=== PATIENT | female | born 1965 | race Caucasian/White ===

== ENCOUNTER 2019-01-24 16:34 | Outpatient (CLI) | payer BC ==
--- NOTE | 2019-01-24 16:53 | RAD ---
EXAM: XR Hand Lt 3 View STANDARD PROVIDED CLINICAL HISTORY: Pain FINDINGS: There is no evidence for fracture or other acute osseous abnormality. Alignment appears anatomic. Sneha nt spaces appear preserved. IMPRESSION: No evidence for an acute osseous abnormality. If there is persistent clinical concern, conservative m anagement and follow-up imaging advised.
== END 2019-01-24 16:35 | disposition home or self-care (01) ==
LOC: BICRAD 16:34
PROVIDERS: ATTEND Family Medicine
DX: S69.92XA Unspecified injury of left wrist, hand and finger(s), initial encounter (principal)

== ENCOUNTER 2019-02-22 12:45 | Outpatient (CLI) | payer BC ==
--- NOTE | 2019-02-22 14:58 | MMO ---
Bilateral MAMMO Bilat Screen [facility]. CLINICAL HISTORY: Patient is 53 years old and is seen for screening. The patient has no family history of breast cancer. The patient has no personal history of cancer. VIEWS: The views performed were: bilateral craniocaudal with tomosynthesis and bilateral mediolateral oblique with tomosynthesis. FILMS COMPARED: The present examination has been compared to prior imaging studies performed at [facility] on 08/29/2011, 08/14/2014, 08/21/2014 and 09/11/2016. This study has been interpreted with the assistance of computer-aided detection. MAMMOGRAM FINDINGS: There are scattered fibroglandular densities. There are no suspicious masses, suspicious calcifications, or new areas of architectural distortion. IMPRESSION: THERE IS NO MAMMOGRAPHIC EVIDENCE OF MALIGNANCY. A ROUTINE FOLLOW-UP MAMMOGRAM IN 1 YEAR IS RECOMMENDED. THE RESULTS OF THIS EXAM WERE SENT TO THE PATIENT. ACR BI-RADS Category 1 - Negative MAMMOGRAPHY NOTE: 1. A negative mammogram report should not delay a biopsy if a dominant of clinically suspicious mass is present. 2. Approximately 10% to 15% of breast cancers are not detected by mammography. 3. Adenosis and dense breasts may obscure an underlying neoplasm. Reported by: NEHA WARNER MD Electonically Signed: [id number]
== END 2019-02-22 12:46 | disposition home or self-care (01) ==
LOC: BICMAMMO 12:45
DX: Z12.31 Encounter for screening mammogram for malignant neoplasm of breast (principal)
CPT/HCPCS: 77063; 77067

== ENCOUNTER 2021-02-14 12:54 | Outpatient (CLI) | payer BC | END 2021-02-14 12:55 | disposition home or self-care (01) | LOC: BICMAMMO 12:54 | PROVIDERS: ATTEND Family Medicine | DX: R92.8 Other abnormal and inconclusive findings on diagnostic imaging of breast (principal) | CPT/HCPCS: G0279 ==